=== PATIENT | female | born 1955 | race Hispanic/Latino ===

== ENCOUNTER 2017-03-17 10:11 | Emergency (ER) | payer MEDICARE ==
[2017-03-17 10:59] LABS: Basophils % (Auto) 0.5 % (0.0-1.8); Eosinophils % (Auto) 1.2 % (0.0-4.3); Hematocrit 37.2 % (30.3-42.9); Hemoglobin 12.2 gm/dl (10.1-14.3); Mean Corpuscular HGB Conc 33 % (30-34); Mean Corpuscular Hemoglobin 28 pg (28-32); Mean Corpuscular Volume 85 fl (79-97); Platelet Count 372 K/mm3 (140-440); Red Blood Count 4.39 M/mm3 (3.65-5.03); Red Cell Distribution Width 14.4 % (13.2-15.2); White Blood Count 10.8 K/mm3 (4.5-11.0)
[2017-03-17 11:22] LABS: Alanine Aminotransferase 13 units/L (7-56); Albumin 3.8 g/dL (3.9-5); Albumin/Globulin Ratio 0.9 %; Alkaline Phosphatase 107 units/L (35-129); Anion Gap 17 mmol/L; BUN/Creatinine Ratio 13.33; Blood Urea Nitrogen 8 mg/dL (7-17); Calcium 8.6 mg/dL (8.4-10.2); Carbon Dioxide 26 mmol/L (22-30); Chloride 96.6 mmol/L (98-107); Glucose 143 mg/dL (65-100); Potassium 3.9 mmol/L (3.6-5.0); Sodium 136 mmol/L (137-145); Total Protein 8.2 g/dL (6.3-8.2)
[2017-03-17] MEDS ORDERED: ZOFRAN IV ONE (11:36)
[2017-03-17] MEDS ORDERED: ANTIVERT PO ONE (11:36)
[2017-03-17] MEDS ORDERED: CATAPRES PO ONE (11:36)
--- NOTE | 2017-03-17 11:50 | Emergency Department Report ---
ED Dizziness HPI - General Chief Complaint: High BP Stated Complaint: HYPERTENSIVE CRISIS Time Seen by Provider: 03/17/17 11:26 Source: EMS Mode of arrival: Ambulatory Limitations: No Limitations - History of Present Illness Initial Comments: 61-year-old female the past medical history diabetes, GERD, hypertension, and depression presents to the hospital complains of possible hypertensive crisis and dizziness. Patient resides at a personal detention. Blood pressure was 220 /150 as per EMS prior to arrival. Patient complains of dizziness/room spinning sensation and blurred vision. Mild nausea reported with "spitting up episodes. She denies headache, chest pain, shortness of breath, abdominal pain, focal weakness or numbness. MAR from personal care reviewed and patient is not on any blood pressure medication at this time. I suspect the patient also has a history of seizures since she is on Keppra and dementia since she is on Aricept and Risperdal. - Related Data Home Medications Medication Instructions Recorded Confirmed Last Taken Citalopram 10 mg PO QAM 03/17/17 03/17/17 1 Day Ago Clopidogrel Bisulfate [Plavix] 7 mg PO DAILY 03/17/17 03/17/17 1 Day Ago Donepezil HCl 5 mg PO QHS 03/17/17 03/17/17 1 Day Ago Loratadine 10 mg PO DAILY 03/17/17 03/17/17 1 Day Ago Mirtazapine 15 mg PO QHS 03/17/17 03/17/17 1 Day Ago Simvastatin [Zocor TAB] 20 mg PO QHS 03/17/17 03/17/17 1 Day Ago levETIRAcetam [Keppra TAB] 2 tab PO BID 03/17/17 03/17/17 1 Day Ago risperiDONE [RisperiDONE] 1 mg PO QHS 03/17/17 03/17/17 1 Day Ago Allergies Allergy/AdvReac Type Severity Reaction Status Date / Time No Known Allergies Allergy Verified 03/17/17 12:39 ED Review of Systems ROS: Stated complaint: HYPERTENSIVE CRISIS Other details as noted in HPI Comment: All other systems reviewed and negative Other: Constitutional: No fevers chills Eyes: No eye pain visual changes ENT: No ear pain or throat pain Neck: Denies pain Respiratory: Denies cough wheezing shortness of breath Cardiovascular: Denies chest pain, palpitations, syncope GI: Denies abdominal pain,diarrhea : Denies dysuria Musculoskeletal: Denies back pain Skin: Denies rash, lesions, erythema Neurologic: Denies headache, numbness, weakness Psychiatric: Denies suicidal ideation, hallucinations ED Past Medical Hx - Past Medical History Previous Medical History?: Yes Hx Hypertension: Yes Hx Diabetes: Yes Hx GERD: Yes Hx Seizures: Yes (on Keppra) Hx Psychiatric Treatment: Yes (depression) Hx Dementia: Yes (on Aricept and Risperdal) Additional medical history: hx duodenal ulcer - Surgical History Past Surgical History?: No - Social History Smoking Status: Never Smoker - Medications Home Medications: Home Medications Medication Instructions Recorded Confirmed Last Taken Type Citalopram 10 mg PO QAM 03/17/17 03/17/17 1 Day Ago History Clopidogrel Bisulfate [Plavix] 7 mg PO DAILY 03/17/17 03/17/17 1 Day Ago History Donepezil HCl 5 mg PO QHS 03/17/17 03/17/17 1 Day Ago History Loratadine 10 mg PO DAILY 03/17/17 03/17/17 1 Day Ago History Mirtazapine 15 mg PO QHS 03/17/17 03/17/17 1 Day Ago History Simvastatin [Zocor TAB] 20 mg PO QHS 03/17/17 03/17/17 1 Day Ago History levETIRAcetam [Keppra TAB] 2 tab PO BID 03/17/17 03/17/17 1 Day Ago History risperiDONE [RisperiDONE] 1 mg PO QHS 03/17/17 03/17/17 1 Day Ago History ED Physical Exam - General Limitations: No Limitations - Other Other exam information: General: No limitations, patient is alert in no acute distress Head exam: Atraumatic, normocephalic Eyes exam: Normal appearance, pupils equal reactive to light, positive nystagmus with right-sided gaze greater than left. Patient also has nystagmus upward and downward gaze. Extraocular movements intact ENT: Moist mucous membrane, normal oropharynx Neck exam: Normal inspection, full range of motion, no meningismus nontender Respiratory exam: Clear to auscultation bilateral, no wheezes, rales, crackles Cardiovascular: Mild tachycardia regular rhythm Abdomen: Soft, nondistended, and nontender, with normal bowel sounds, no rebound, or guarding Extremity: Full range of motion normal inspection no deformity Back: Normal Inspection, full range of motion, no tenderness Neurologic: Alert, oriented x 1 (no oriented to place or year), cranial nerves intact, no motor or sensory deficit Psychiatric: normal affect, normal mood, [id number] function intact Skin: Warm, dry, intact ED Course Vital Signs 03/17/17 03/17/17 03/17/17 10:26 10:43 11:50 Temperature 97 F L Pulse Rate 106 H 97 H 90 Respiratory 18 14 16 Rate Blood Pressure 206/126 175/104 Blood Pressure 176/110 [Right] O2 Sat by Pulse 100 96 100 Oximetry - Reevaluation(s) Reevaluation #1: 03/17/17 12:53 Patient received meclizine 50 mg, Zofran, and climbing 0.[address] revealed acute hemorrhage Cardine drip initiated with goal systolic less than 150 and Keppra 1 g ordered since patient apparently has a past medical history seizures and last dose of Keppra 750 mg was yesterday at 5 PM per DEC. Reevaluation #2: 03/17/17 13:10 Now patient has asymmetric pupils. Left eye is 2-3 mm, right is aprox 4 mm. Mental status is unchanged, other neuro findings unchanged - Consultations Consultation #1: 03/17/17 12:53 She has been accepted by neurosurgeon Dr. Cantu and ekg monitor Dr. Grullon for transfer to [place] 03/17/17 13:10 Platelet was recommended by the neural surgeon and ekg monitor however platelets are not kept in house and it takes time to transfuse him since they must come from the [place]. Patient will be transferred by air to [place]. ED Medical Decision Making - Lab Data Result diagrams: 03/17/17 10:46 03/17/17 10:46 Lab Results 03/17/17 03/17/17 03/17/17 Range/Units 10:46 10:46 12:05 WBC 10.8 (4.5-11.0) K/mm3 RBC 4.39 (3.65-5.03) M/mm3 Hgb 12.2 (10.1-14.3) gm/dl Hct 37.2 (30.3-42.9) % MCV 85 (79-97) fl MCH 28 (28-32) pg MCHC 33 (30-34) % RDW 14.4 (13.2-15.2) % Plt Count 372 (140-440) K/mm3 Lymph % (Auto) 8.7 L (13.4-35.0) % [place] % (Auto) 5.1 (0.0-7.3) % Eos % (Auto) 1.2 (0.0-4.3) % Baso % (Auto) 0.5 (0.0-1.8) % Lymph # 0.9 L (1.2-5.4) K/mm3 [place] # 0.5 (0.0-0.8) K/mm3 Eos # 0.1 (0.0-0.4) K/mm3 Baso # 0.1 (0.0-0.1) K/mm3 Seg Neutrophils % 84.5 H (40.0-70.0) % Seg Neutrophils # 9.1 H (1.8-7.7) K/mm3 Sodium 136 L (137-145) mmol/L Potassium 3.9 (3.6-5.0) mmol/L Chloride 96.6 L (98-107) mmol/L Carbon Dioxide 26 (22-30) mmol/L Anion Gap 17 mmol/L BUN 8 (7-17) mg/dL Creatinine 0.6 L (0.7-1.2) mg/dL Estimated GFR > 60 ml/min BUN/Creatinine Ratio 13.33 % Glucose 143 H (65-100) mg/dL Calcium 8.6 (8.4-10.2) mg/dL Total Bilirubin 0.20 (0.1-1.2) mg/dL AST 16 (5-40) units/L ALT 13 (7-56) units/L Alkaline Phosphatase 107 (35-129) units/L Total Protein 8.2 (6.3-8.2) g/dL Albumin 3.8 L (3.9-5) g/dL Albumin/Globulin Ratio 0.9 % Urine Color Straw (Yellow) Urine Turbidity Clear (Clear) Urine pH 7.0 (5.0-7.0) Ur Specific [place] 1.008 (1.003-1.030) Urine Protein 30 mg/dl (Negative) mg/dL Urine Glucose (UA) Neg (Negative) mg/dL Urine Ketones Tr (Negative) mg/dL Urine Blood Neg (Negative) Urine Nitrite Neg (Negative) Urine Bilirubin Neg (Negative) Urine Urobilinogen < 2.0 (<2.0) mg/dL Ur Leukocyte Esterase Neg (Negative) Urine WBC (Auto) < 1.0 (0.0-6.0) /HPF Urine RBC (Auto) 3.0 (0.0-6.0) /HPF U Epithel Cells (Auto) < 1.0 (0-13.0) /HPF Urine Bacteria (Auto) 1+ (Negative) /HPF Urine Mucus Few /HPF - EKG Data -: EKG Interpreted by Me (sinus rhythm with sinus arrhythmia rate 95) - EKG Data When compared to previous EKG there are: changes noted (10/02/2009 had significant anterolateral T inversion that have now resolved) - Radiology Data Radiology results: report reviewed CT head noncontrast: Acute right cerebellar hemorrhage with hemorrhage extending into the fourth ventricle. Mass effect on the fourth ventricle and moderately ventriculomegaly. No discrete mass is identified although underlying mass cannot be excluded without contrast. - Medical Decision Making Patient has been accepted for transfer to [place] due to acute cerebellar hemorrhage. Patient is on Plavix. - Differential Diagnosis hypertensive emergency/urgency, cerebellar hemorrhage, vertigo, Mnire's Critical Care Time: No Critical care attestation.: If time is entered above; I have spent that time in minutes in the direct care of this critically ill patient, excluding procedure time. ED Disposition Clinical Impression: Cerebellar hemorrhage, acute, Hypertensive emergency, Vertigo, Nystagmus, Dementia, History of seizure disorder, Platelet inhibition due to Plavix Disposition: DC/TX-70 ANOTHER TYPE HLTHCARE Is pt being admited?: No Condition: Stable Time of Disposition: 12:52 (accepted by by Dr Cantu/Yvon)
[2017-03-17 12:17] LABS: Bacteria,Urine 1+ /HPF (Negative); Bilirubin,Urine NEG (Negative); Blood,Urine NEG (Negative); Ketones,Urine TR mg/dL (Negative); Leukocyte Esterase,Urine NEG (Negative); Mucus,Urine FEW /HPF; Nitrite,Urine NEG (Negative); Urobilinogen,Urine < 2.0 mg/dL (<2.0)
[2017-03-17 12:25] LABS: WBC,Urine < 1.0 /HPF (0.0-6.0)
--- NOTE | 2017-03-17 12:33 | Cat Scan Report ---
CT HEAD WITHOUT CONTRAST: 03/17/17 10:11:00 CLINICAL: Vertigo and hypertension. TECHNIQUE: 2.5-mm noncontrast scans. COMPARISON:None available FINDINGS: A right cerebellar hemorrhage measures 2.7 x 2.3 cm. It has mixed density and hemorrhage extends into the fourth ventricle. Mild cerebellar subarachnoid hemorrhage versus tentorial calcification. No other hemorrhage is identified. There is mild mass effect upon the fourth ventricle and the lateral and third ventricles are moderately enlarged. The supratentorial brain is normal except for mild sulcal enlargement. The brainstem is normal. Bilateral maxillary, right ethmoid and bilateral sphenoid sinusitis. Normal orbits and soft tissues. The calvarium and skull base are intact. IMPRESSION: Acute right cerebellar hemorrhage with hemorrhage extending into the fourth ventricle. Mass effect on the fourth ventricle and moderate ventriculomegaly. No distinct mass is identified but an underlying mass cannot be excluded without contrast. I gave a verbal report to Dr. Jacob in the emergency department on 03/17/17 at 12:20 o'clock. CODE MONIKA
[2017-03-17] MEDS ORDERED: KEPPRA 1,000 MG/NS 0.75% 100ML 1,000 MG/100 ML BAG IV ONE (12:51)
[2017-03-17] MEDS ORDERED: CARDENE 50 MG in NACL 0.9% 250ML 230 ML IV SCH (13:00)
[2017-03-17 13:25] LABS: INR 1.01 (0.87-1.13); Partial Thromboplastin Time 31.6 Sec. (24.2-36.6)
[2017-03-17 14:15] VITALS: BP 137/47
== END 2017-03-17 14:16 | disposition other institution (70) ==
LOC: ED 10:11
DX: I61.4 Nontraumatic intracerebral hemorrhage in cerebellum (principal); I16.0 Hypertensive urgency; R42 Dizziness and giddiness; H55.00 Unspecified nystagmus; F03.90 Unspecified dementia, unspecified severity, without behavioral disturbance, psychotic disturbance, mood disturbance, and anxiety; I10 Essential (primary) hypertension; E11.9 Type 2 diabetes mellitus without complications; K21.9 Gastro-esophageal reflux disease without esophagitis; G40.909 Epilepsy, unspecified, not intractable, without status epilepticus
CPT/HCPCS: 36415; 51701; 70450; 80053; 81001; 85025; 85610; 85730; 86850; 86900; 86901; 93005; 93010; 96365; 96375; 99285; J1953; J2405; J7050